=== PATIENT | female | born 1980 | race Asian ===

== ENCOUNTER 2022-05-12 14:59 | Emergency (ER) | payer OTHER ==
[~2022-05-12] VITALS: Ht 157.5 cm; Wt 57.3 kg
[2022-05-12] MEDS ORDERED: LORazepam 1 MG TABLET PO ONE (15:45)
[2022-05-12] MEDS ORDERED: OLANZapine 5 MG TABLET PO ONE (15:45)
[2022-05-12 16:13] VITALS: BP 145/86
== END 2022-05-12 18:41 | disposition home or self-care (01) ==
LOC: EMS 15:02
DX: R44.0 Auditory hallucinations (principal); F19.90 Other psychoactive substance use, unspecified, uncomplicated; F15.90 Other stimulant use, unspecified, uncomplicated
CPT/HCPCS: 99283

== ENCOUNTER 2022-09-02 10:57 | Emergency (ER) | payer OTHER ==
[~2022-09-02] VITALS: Ht 149.9 cm; Wt 54.5 kg
[2022-09-02 11:01] VITALS: BP 110/65
== END 2022-09-02 13:44 | disposition home or self-care (01) ==
LOC: EMS 10:59
DX: F19.10 Other psychoactive substance abuse, uncomplicated (principal); F15.10 Other stimulant abuse, uncomplicated; F14.90 Cocaine use, unspecified, uncomplicated; F12.90 Cannabis use, unspecified, uncomplicated
CPT/HCPCS: 99281